=== PATIENT | female | born 1995 | race American Indian/Alaskan Native ===

== ENCOUNTER 2019-07-14 18:07 | Inpatient (IN) | payer BC ==
[2019-07-14 18:48] LABS: Basophils % (Auto) 0.4 % (0.0-1.8); Eosinophils # (Auto) 0.1 K/mm3 (0.0-0.4); Eosinophils % (Auto) 1.1 % (0.0-4.3); Hematocrit 32.7 % (30.3-42.9); Hemoglobin 11.1 gm/dl (10.1-14.3); Lymphocytes % (Auto) 25.6 % (13.4-35.0); Mean Corpuscular HGB Conc 34 % (30-34); Mean Corpuscular Volume 87 fl (79-97); Monocytes # (Auto) 0.7 K/mm3 (0.0-0.8); Monocytes % (Auto) 8.7 % (0.0-7.3); Platelet Count 221 K/mm3 (140-440); Red Blood Count 3.76 M/mm3 (3.65-5.03); Red Cell Distribution Width 17.1 % (13.2-15.2)
[2019-07-14 19:02] LABS: BUN/Creatinine Ratio 10; Blood Urea Nitrogen 5 mg/dL (7-17); Calcium 9.9 mg/dL (8.4-10.2); Hemolysis Index 1
[2019-07-14 21:23] LABS: Bilirubin,Urine NEG (Negative); Blood,Urine LG (Negative); Color,Urine Yellow (Yellow); Mucus,Urine 1+ /HPF; Urobilinogen,Urine < 2.0 mg/dL (<2.0)
[2019-07-14 21:27] LABS: RBC,Urine > 182.0 /HPF (0.0-6.0)
--- NOTE | 2019-07-14 21:48 | Ultrasound Report ---
ULTRASOUND OBSTETRIC, 07/14/2019 Indication: Vaginal bleeding in early . Rupture of membranes. COMPARISON: No prior studies are available for comparison. Findings: There is a single intrauterine . BPD = 3.2 cm = 16 weeks, 0 day(s). Head circumference = 12.7 cm = 16 weeks, 3 day(s). Abdominal circumference = 10.3 cm = 16 weeks, 2 day(s). Femur length = 2.1 cm = 16 weeks, 1 day(s). Overall estimated sonographic age = 16 weeks, 2 day(s). heart rate during the study ranged from 113 bpm to 174 bpm position is breech. Placenta is anterior and grade 0 . Amniotic fluid volume decreased. MIREYA equals less than 1 cm. Impression: 1. Single living intrauterine with estimated sonographic age of 16 weeks, 2 day(s). 2. Decreased amniotic fluid volume measuring less than 1 cm. Signer Name: Sandra Cates MD Signed: 07/14/2019 9:44 PM Workstation Name: [id number]
[2019-07-14] MEDS ORDERED: NACL 0.9% 1000 ML 1,000 ML IV ONE ×2 (22:07→23:50)
--- NOTE | 2019-07-14 23:24 | Emergency Department Report ---
ED Female HPI - General Chief complaint: Vaginal Bleeding Stated complaint: POSS MISCARRIAGE/HEADACHE Source: patient Mode of arrival: Ambulatory Limitations: No Limitations - History of Present Illness Initial comments: Patient is a A0 and runny less than items female who is approximately 15 weeks gestation and presents to the ED with complaint of acute onset consistent suprapubic pain and vaginal bleeding for the last 6 hours. Patient also complains of severe headache. Patient states that she noticed a mucus-like blood in the vagina and thereafter started having vaginal bleeding. Patient denies dizziness, fever, chills, nausea, vomiting, diarrhea, chest pain, shortness of breath, dysuria, urinary frequency and urgency and cough. MD Complaint: vaginal bleeding, pelvic pain, other (headache) -: Sudden, hour(s) (6) Location: suprapubic, other (vaginal) Radiation: non-radiating Severity: moderate Severity scale (0 -10): 6 Quality: cramping, sharp Consistency: intermittent Improves with: none Worsens with: none Are you Now?: Yes (15 weeks gestation) Associated Symptoms: denies other symptoms, vaginal bleeding, abdominal pain, headaches. denies: vaginal discharge, nausea/vomiting, fever/chills, loss of appetite, dysuria, hematuria, rash, seizure, shortness of breath, syncope, weakness, other - Related Data Sexually active: Yes : 1 Para: 0 A: 0 Allergies Allergy/AdvReac Type Severity Reaction Status Date / Time No Known Allergies Allergy Verified 07/14/19 18:10 ED Review of Systems ROS: Stated complaint: POSS MISCARRIAGE/HEADACHE Other details as noted in HPI Constitutional: denies: chills, fever Eyes: denies: eye pain, eye discharge, vision change ENT: denies: ear pain, throat pain Respiratory: denies: cough, shortness of breath, wheezing Cardiovascular: denies: chest pain, palpitations Endocrine: no symptoms reported Gastrointestinal: abdominal pain (suprapubic). denies: nausea, diarrhea Genitourinary: other (Vaginal bleeding). denies: urgency, dysuria, discharge Musculoskeletal: denies: back pain, joint swelling, arthralgia Skin: denies: rash, lesions Neurological: denies: headache, weakness, paresthesias Psychiatric: denies: anxiety, depression Hematological/Lymphatic: denies: easy bleeding, easy bruising ED Past Medical Hx - Past Medical History Previous Medical History?: No - Surgical History Past Surgical History?: No - Social History Smoking Status: Never Smoker Substance Use Type: None ED Physical Exam - General Limitations: No Limitations General appearance: alert, in no apparent distress - Head Head exam: Present: atraumatic, normocephalic, normal inspection - Eye Eye exam: Present: normal appearance, PERRL, EOMI Pupils: Present: normal accommodation - ENT ENT exam: Present: normal exam, normal orophraynx, mucous membranes moist, TM's normal bilaterally, normal external ear exam - Neck Neck exam: Present: normal inspection - Respiratory Respiratory exam: Present: normal lung sounds bilaterally. Absent: respiratory distress, wheezes, rales, rhonchi, chest wall tenderness, accessory muscle use, decreased breath sounds - Cardiovascular Cardiovascular Exam: Present: regular rate, normal rhythm, normal heart sounds. Absent: systolic murmur, diastolic murmur, rubs, gallop - GI/Abdominal GI/Abdominal exam: Present: soft, tenderness (mildly tender suprapubic area), normal bowel sounds. Absent: guarding, rebound, rigid, hyperactive bowel sounds, hypoactive bowel sounds, organomegaly, mass - Rectal Rectal exam: Present: deferred - External exam: Present: normal external exam Speculum exam: Present: vaginal bleeding (with blood clots in the vaginal vault), other (Cervical os partially closed with blood clots, and active bleeding.) Bi-manual exam: Present: other (Deferred bimanual exam) - Extremities Exam Extremities exam: Present: normal inspection, full ROM, normal capillary refill - Back Exam Back exam: Present: normal inspection, full ROM. Absent: tenderness, CVA tenderness (R), CVA tenderness (L), muscle spasm, paraspinal tenderness - Neurological Exam Neurological exam: Present: alert, oriented X3, CN II-XII intact, normal gait, reflexes normal - Psychiatric Psychiatric exam: Present: normal affect, normal mood - Skin Skin exam: Present: warm, dry, intact, normal color. Absent: rash ED Course Vital Signs 07/14/19 22:23 Temperature 98.7 F Pulse Rate 92 H Respiratory 16 Rate Blood Pressure 93/52 [Right] O2 Sat by Pulse 100 Oximetry - Reevaluation(s) Reevaluation #1: 07/15/19 01:21 This is a 23-year-old A0 female who is approximately 16 weeks gestation presented to ED with vaginal bleeding. Lab test results were reviewed and is unremarkable except for urinalysis that showed mild urinary tract infection. Exam showed active bleeding with blood clots in the vaginal vault and cervical os partially closed with blood clots. Patient was treated in the ED normal saline 2 L IV bolus and Rocephin 1 g IV 1. The ultrasound showed a single living intrauterine with estimated sonographic age of 16 weeks, 2 day(s) with FHR ranging between 113 bpm to 174 bpm and a decreased amniotic fluid volume measuring less than 1 cm. These findings were discussed with the ED attending physician Dr. Thania Gorman who advised that the [facility] Operator Physician concert or lecture hall manager be paged for further direction. Reevaluation #2: 07/15/19 01:27 I paged and discussed the patient's findings with the ObyGyn Physician concert or lecture hall manager Dr. Ayde Gr who admitted the patient to the [facility] Floor for evaluation. Dr. Gr to call in admission orders to the [facility] Floor. ED Medical Decision Making - Lab Data Result diagrams: 07/14/19 18:35 07/14/19 18:35 - Radiology Data Radiology results: report reviewed, image reviewed Findings [facility] [address] [place] [address] Ultrasound Report Signed Patient: BESSIE TORIBIO MR#: [id number] : 1995 Acct:[id number] Age/Sex: 23 / F ADM Date: 07/14/19 Loc: ED Attending Dr: Ordering Physician: KIRAN RUBIO Date of Service: 07/14/19 Procedure(s): US OB >= 14 weeks Fetus Accession Number(s): [id number] cc: KIRAN RUBIO ULTRASOUND OBSTETRIC, 07/14/2019 Indication: Vaginal bleeding in early . Rupture of membranes. COMPARISON: No prior studies are available for comparison. Findings: There is a single intrauterine . BPD = 3.2 cm = 16 weeks, 0 day(s). Head circumference = 12.7 cm = 16 weeks, 3 day(s). Abdominal circumference = 10.3 cm = 16 weeks, 2 day(s). Femur length = 2.1 cm = 16 weeks, 1 day(s). Overall estimated sonographic age = 16 weeks, 2 day(s). heart rate during the study ranged from 113 bpm to 174 bpm position is breech. Placenta is anterior and grade 0 . Amniotic fluid volume decreased. MIREYA equals less than 1 cm. Impression: 1. Single living intrauterine with estimated sonographic age of 16 weeks, 2 day(s). 2. Decreased amniotic fluid volume measuring less than 1 cm. Signer Name: Sandra Cates MD Signed: 07/14/2019 9:44 PM Workstation Name: [id number] Transcribed By: EB Dictated By: Sandra Cates MD Electronically Authenticated By: Sandra Cates MD Signed Date/Time: 07/14/19 491 - Medical Decision Making This is a 23-year-old A0 female who is approximately 16 weeks gestation presented to ED with vaginal bleeding. Lab test results were reviewed and is unremarkable except for urinalysis that showed mild urinary tract infection. Exam showed active bleeding with blood clots in the vaginal vault and cervical os partially closed with blood clots. Patient was treated in the ED normal s dean 2 L IV bolus and Rocephin 1 g IV 1. The ultrasound showed a single living intrauterine with estimated sonographic age of 16 weeks, 2 day(s) with FHR ranging between 113 bpm to 174 bpm and a decreased amniotic fluid volume measuring less than 1 cm. These findings were discussed with the ED attending physician Dr. Thania Gorman who advised that the Yvonne/Calender Operator Physician concert or lecture hall manager be paged for further direction. I paged and discussed the patient's findings with the ObyGyn Physician concert or lecture hall manager Dr. Ayde Gr who admitted the patient to the [facility] Floor for evaluation. Dr. Gr to call in admission orders to the [facility] Floor. - Differential Diagnosis Threatened miscarriage; Pelvic pain; Vaginal bleeding Critical care attestation.: If time is entered above; I have spent that time in minutes in the direct care of this critically ill patient, excluding procedure time. ED Disposition Clinical Impression: Threatened miscarriage, Abdominal pain during intrauterine , Vaginal bleeding before 22 weeks gestation Disposition: OP ADMIT IP TO THIS HOSP Is pt being admited?: Yes Does the pt Need Aspirin: No Condition: Stable Referrals: SKYLAR GUTIERREZ MD [Primary Care Provider] - 3-5 Days Time of Disposition: 01:30 Print Language: KOREAN
[2019-07-14] MEDS ORDERED: ROCEPHIN/NS 1 GM/50 ML 1 GM/50 ML BAG IV ONE (23:50)
[2019-07-15] MEDS: STADOL IV PRN ×3 (05:39→22:55)
[2019-07-15] MEDS: LACTATED RINGERS 1,000 ML IV SCH ×2 (05:39→20:02)
--- NOTE | 2019-07-15 08:44 | History and Physical Report ---
History of Present Illness Date of examination: 07/15/19 Date of admission: 07/15/19 01:31 Chief complaint: bleeding and cramping with 16 week iup. Medications and Allergies Allergies Allergy/AdvReac Type Severity Reaction Status Date / Time No Known Allergies Allergy Verified 07/14/19 18:10 Home Medications Medication Instructions Recorded Confirmed Last Taken Type No Known Home Medications [No 07/15/19 07/15/19 Unknown History Reported Home Medications] Active Meds: Active Medications Butorphanol Tartrate (Stadol) 1 mg IV Q2H PRN PRN Reason: Labor Pain Last Admin: 07/15/19 05:39 Dose: 1 mg Documented by: Lactated Ringer's (Lactated Ringers) 1,000 mls @ 125 mls/hr IV DIRECT SUZANNE Last Admin: 07/15/19 05:39 Dose: 125 mls/hr Documented by: - Vital Signs Vital signs: Vital Signs Temp Pulse Resp BP Pulse Ox 98.7 F 92 H 16 93/52 100 07/14/19 22:23 07/14/19 22:23 07/14/19 22:23 07/14/19 22:23 07/14/19 22:23 Temp Pulse Resp BP Pulse Ox 97.7 F 69 20 95/55 100 07/15/19 08:30 07/15/19 08:30 07/15/19 08:30 07/15/19 08:30 07/15/19 08:30 Results Result Diagrams: 07/14/19 18:35 07/14/19 18:35 Abnormal lab results 07/14/19 07/14/19 07/14/19 Range/Units 18:35 18:35 20:42 RDW 17.1 H (13.2-15.2) % Taylor % (Auto) 8.7 H (0.0-7.3) % BUN 5 L (7-17) mg/dL Creatinine 0.5 L (0.7-1.2) mg/dL Lipase 11 L (13-60) units/L HCG, Quant (0-4) mIU/mL Urine WBC (Auto) (0.0-6.0) /HPF 07/14/19 07/15/19 Range/Units Unknown 01:50 RDW (13.2-15.2) % Taylor % (Auto) (0.0-7.3) % BUN (7-17) mg/dL Creatinine (0.7-1.2) mg/dL Lipase (13-60) units/L HCG, Quant 7130 H (0-4) mIU/mL Urine WBC (Auto) 9.0 H (0.0-6.0) /HPF All other labs normal.
[2019-07-16] MEDS: STADOL IV PRN (00:45)
[2019-07-16] MEDS: LACTATED RINGERS 1,000 ML IV SCH ×3 (02:17→23:29)
[2019-07-16] MEDS ORDERED: ZOFRAN IM ONE (05:13)
[2019-07-16] MEDS ORDERED: ZOFRAN IV ONE (05:19)
[2019-07-16] MEDS ORDERED: IBUPROFEN PO PRN (06:59)
[2019-07-16] MEDS ORDERED: PITOCin/NS 20 UNIT/1000ML DRIP 20 UNITS/1,000 ML BAG IV SCH (07:00)
[2019-07-16] MEDS ORDERED: PITOCin/NS 20 UNIT/1000ML DRIP 20,000 MILLIUNITS/1,000 ML BAG IV ONE (07:13)
--- NOTE | 2019-07-16 16:07 | Progress Note ---
Assessment and Plan with pprom at 16 weeks now post delivery of fetus but awaiting delivery of placenta. Will order cytotec per rectum to help expedite process. Subjective - Subjective Date of service: 07/16/19 Principal diagnosis: pprom at 16 weeks Interval history: Pt began cramping overnight and delivered fetus in bed. Small cord was clamped and cut by nursing staff. Now awaiting delivery of placenta Patient reports: vaginal bleeding (scant) Objective - Vital Signs Vital Signs: Vital Signs - 12hr 07/16/19 07/16/19 07/16/19 04:31 08:53 11:51 Temperature 98.7 F 98.0 F 98.8 F Pulse Rate 78 72 71 Respiratory 20 16 20 Rate Blood Pressure 108/67 99/55 100/54 O2 Sat by Pulse 98 98 98 Oximetry - Exam Breasts: deferred Cardiovascular: Regular rate, Normal S1, Normal S2 Lungs: Clear to auscultation, Normal air movement Abdomen: Present: normal appearance, soft. Absent: distention, tenderness Vulva: both: normal Uterus: Present: normal Cervical Dilatation: 4 Cervical Effacement Percentage: 80 - Labs Labs: Abnormal Labs 07/14/19 07/14/19 07/14/19 18:35 18:35 20:[address] % (Auto) 8.7 H BUN 5 L Creatinine 0.5 L Lipase 11 L HCG, Quant Urine WBC (Auto) 07/14/19 07/15/19 Unknown 01:[address] % (Auto) BUN Creatinine Lipase HCG, Quant 7130 H Urine WBC (Auto) 9.0 H
[2019-07-16] MEDS: TYLENOL PO PRN ×2 (16:30→23:19)
[2019-07-16] MEDS: CYTOTEC PR SCH ×2 (17:19→23:21)
[2019-07-17] MEDS ORDERED: REGLAN ONE (00:36)
[2019-07-17] MEDS ORDERED: PEPCID IV ONE ×2 (00:36→00:41)
[2019-07-17] MEDS ORDERED: BICITRA ONE (00:36)
[2019-07-17] MEDS ORDERED: PITOCin/NS 20 UNIT/1000ML DRIP 20,000 MILLIUNITS/1,000 ML BAG IV ONE (00:37)
[2019-07-17] MEDS ORDERED: LACTATED RINGERS 0 ML ONE (00:38)
[2019-07-17] MEDS ORDERED: BICITRA PO ONE (00:39)
[2019-07-17] MEDS ORDERED: REGLAN IV ONE (00:40)
[2019-07-17 00:50] LABS: Basophils % (Auto) 0.4 % (0.0-1.8); Eosinophils # (Auto) 0.1 K/mm3 (0.0-0.4); Eosinophils % (Auto) 1.4 % (0.0-4.3); Hematocrit 24.3 % (30.3-42.9); Hemoglobin 8.2 gm/dl (10.1-14.3); Lymphocytes # (Auto) 2.4 K/mm3 (1.2-5.4); Mean Corpuscular HGB Conc 34 % (30-34); Mean Corpuscular Volume 89 fl (79-97); Monocytes # (Auto) 0.7 K/mm3 (0.0-0.8); Monocytes % (Auto) 9.2 % (0.0-7.3); Platelet Count 168 K/mm3 (140-440); Red Blood Count 2.74 M/mm3 (3.65-5.03); Red Cell Distribution Width 16.4 % (13.2-15.2)
[2019-07-17 01:00] LABS: INR 1.2 (0.87-1.13)
[2019-07-17 01:01] LABS: Partial Thromboplastin Time 29.1 Sec. (24.2-36.6)
[2019-07-17] MEDS ORDERED: ANCEF/STERILE WATER 2 GM/20 ML 0 GM/0 ML SYRINGE IV ONE (01:01)
--- NOTE | 2019-07-17 01:27 | Event Note ---
Date: 07/17/19 Pt began bleeding approximately one hour post 2nd cytotec. Because of the amount of bleeding the decision was made to proceed with urgent D&C, however, prior to or, placenta delivered spontaneously. Fundus was firm with minimal bleeding.
--- NOTE | 2019-07-17 01:33 | Discharge Summary ---
Providers - Providers Date of Admission: 07/15/19 01:31 Date of discharge: 07/17/19 Attending physician: LETI PLATA Primary care physician: [facility] Hospitalization Reason for admission: labor, IUFD Discharge diagnosis: delivery Hospital course: unremarkable Condition at discharge: Good Disposition: DC-01 TO HOME OR SELFCARE Plan - Discharge Medications Prescriptions: Ibuprofen [Motrin] 800 mg PO Q8HR PRN #40 tablet PRN Reason: Pain, Moderate (4-6) DOXYCYCLINE Hyclate [Vibramycin CAP] 100 mg PO BID #20 capsule - Provider Discharge Summary Activity: routine, no sex for 6 weeks, no heavy lifting 4 weeks, no strenuous exercise Diet: routine Instructions: routine Additional instructions: [] Smoking cessation referral if applicable(refer to patient education folder for contact #) [] Refer to [facility]'s [facility] Booklet Call your doctor immediately for: * Fever > 100.5 * Heavy vaginal bleeding ( >1 pad per hour) * Severe persistent headache * Shortness of breath * Reddened, hot, painful area to leg or breast * Drainage or odor from incision. * Keep incision clean and dry at all times and follow doctor's instructions regarding bathing/showering - Follow up plan Follow up: SKYLAR GUTIERREZ MD [Primary Care Provider] - 14 Days
[2019-07-17 03:10] LABS: Hematocrit 20.4 % (30.3-42.9); Hemoglobin 6.8 gm/dl (10.1-14.3)
[2019-07-17] MEDS: LACTATED RINGERS 1,000 ML IV SCH (06:22)
[2019-07-17 12:56] VITALS: BP 97/49
== END 2019-07-17 16:30 | disposition home or self-care (01) | DRG 833 ==
LOC: ED 18:07 → OB 07-15 01:31
PROVIDERS: ADMIT Obstetrics & Gynecology; ATTEND Obstetrics & Gynecology
PROC: 10E0XZZ Delivery of Products of Conception, External Approach (ICD-10-PCS; principal; 2019-07-17)
PROC: 3E0P7VZ Introduction of Hormone into Female Reproductive, Via Natural or Artificial Opening (ICD-10-PCS; 2019-07-17)
DX: O20.0 Threatened abortion (principal); Z3A.16 16 weeks gestation of pregnancy
CPT/HCPCS: 36415; 76805; 80048; 81001; 83690; 84702; 85014; 85018; 85025; 85379; 85384; 85610; 85730; 86900; 86901; 87086; 88305; 96361; 96365; G0378; J0595; J0690; J0696; J2405; J2590; J2765; J7030; J7120

== ENCOUNTER 2019-08-14 06:30 | Emergency (ER) | payer BC ==
[2019-08-14 06:39] VITALS: BP 128/82
--- NOTE | 2019-08-14 08:07 | Emergency Department Report ---
ED Abdominal Pain HPI - General Chief Complaint: Abdominal Pain Stated Complaint: HIP PAIN Time Seen by Provider: 08/14/19 07:56 Source: patient Mode of arrival: Ambulatory Limitations: No Limitations - History of Present Illness Initial Comments: This 24-year-old female presents to ED complaining of left-sided flank pain for the past 3 days. Patient states that pain is intermittent and comes and goes throughout the day. She was to pale about a 4 out of 10 intensity. She admits intermittent nausea but denies vomiting or dysuria, fever, vaginal discharge or vaginal bleeding. MD Complaint: flank pain Severity scale (0 -10): 5 - Related Data Previous Rx's Medication Instructions Recorded Last Taken Type DOXYCYCLINE Hyclate [Vibramycin 100 mg PO BID #20 capsule 07/17/19 Unknown Rx CAP] Ibuprofen [Motrin] 800 mg PO Q8HR PRN #40 tablet 07/17/19 Unknown Rx Ketorolac [Toradol] 10 mg PO Q6H PRN #30 tablet 08/14/19 Unknown Rx Ondansetron [Zofran ODT TAB] 8 mg PO Q12HR #30 tab.rapdis 08/14/19 Unknown Rx Allergies Allergy/AdvReac Type Severity Reaction Status Date / Time No Known Allergies Allergy Verified 07/14/19 18:10 ED Review of Systems ROS: Stated complaint: HIP PAIN Other details as noted in HPI Comment: All other systems reviewed and negative ED Past Medical Hx - Past Medical History Previous Medical History?: Yes Additional medical history: miscarriage in jul 2019 - Surgical History Past Surgical History?: No - Social History Smoking Status: Never Smoker Substance Use Type: None - Medications Home Medications: Home Medications Medication Instructions Recorded Confirmed Last Taken Type DOXYCYCLINE Hyclate [Vibramycin 100 mg PO BID #20 capsule 07/17/19 Unknown Rx CAP] Ibuprofen [Motrin] 800 mg PO Q8HR PRN #40 tablet 07/17/19 Unknown Rx Ketorolac [Toradol] 10 mg PO Q6H PRN #30 tablet 08/14/19 Unknown Rx Ondansetron [Zofran ODT TAB] 8 mg PO Q12HR #30 tab.rapdis 08/14/19 Unknown Rx ED Physical Exam - General Limitations: No Limitations General appearance: alert, in no apparent distress - Head Head exam: Present: atraumatic, normocephalic - Eye Eye exam: Present: normal appearance - ENT ENT exam: Present: mucous membranes moist - Neck Neck exam: Present: normal inspection - Respiratory Respiratory exam: Present: normal lung sounds bilaterally. Absent: respiratory distress - Cardiovascular Cardiovascular Exam: Present: regular rate, normal rhythm. Absent: systolic murmur, diastolic murmur, rubs, gallop - GI/Abdominal GI/Abdominal exam: Present: soft, normal bowel sounds. Absent: distended, tenderness, guarding - Extremities Exam Extremities exam: Present: normal inspection, full ROM - Back Exam Back exam: Present: normal inspection, full ROM. Absent: tenderness, CVA tenderness (R), CVA tenderness (L) - Neurological Exam Neurological exam: Present: alert, oriented X3 - Psychiatric Psychiatric exam: Present: normal affect, normal mood - Skin Skin exam: Present: warm, dry, intact, normal color. Absent: rash ED Course Vital Signs 08/14/19 06:37 Temperature 97.9 F Pulse Rate 75 Respiratory 18 Rate Blood Pressure 128/82 [Right] O2 Sat by Pulse 99 Oximetry ED Medical Decision Making - Lab Data Laboratory Last Values Urine Color Yellow (Yellow) 08/14/19 08:08 Urine Turbidity Clear (Clear) 08/14/19 08:08 Urine pH 6.0 (5.0-7.0) 08/14/19 08:08 Ur Specific Wharton 1.016 (1.003-1.030) 08/14/19 08:08 Urine Protein <15 mg/dl mg/dL (Negative) 08/14/19 08:08 Urine Glucose (UA) Neg mg/dL (Negative) 08/14/19 08:08 Urine Ketones Neg mg/dL (Negative) 08/14/19 08:08 Urine Blood Sm (Negative) 08/14/19 08:08 Urine Nitrite Neg (Negative) 08/14/19 08:08 Urine Bilirubin Neg (Negative) 08/14/19 08:08 Urine Urobilinogen < 2.0 mg/dL (<2.0) 08/14/19 08:08 Ur Leukocyte Esterase Tr (Negative) 08/14/19 08:08 Urine WBC (Auto) < 1.0 /HPF (0.0-6.0) 08/14/19 08:08 Urine RBC (Auto) 1.0 /HPF (0.0-6.0) 08/14/19 08:08 U Epithel Cells (Auto) 4.0 /HPF (0-13.0) 08/14/19 08:08 Hyaline Casts 1 /LPF 08/14/19 08:08 Urine Mucus Few /HPF 08/14/19 08:08 Urine HCG, Qual Negative (Negative) 08/14/19 08:08 - Medical Decision Making 24-year-old female presents with left flank pain mostly secondary to kidney stone. Urinalysis positive for crystal oxalate which is suggestive of a kidney stone. At this time patient is in no acute distress. Abdomen is nontender. Discussed with patient stones usually will pass and to follow up with her primary care physician. Instructions given. Discussed with the patient if symptoms worsen or new symptoms arise to return to ED immediately Otherwise all vital signs are normal patient is in no distress she is sitting comfortably in the ED. Throughout her ED stay. Patient declined to have pain medication because she was not in pain or in the ED stay. Critical care attestation.: If time is entered above; I have spent that time in minutes in the direct care of this critically ill patient, excluding procedure time. ED Disposition Clinical Impression: Acute flank pain, Kidney calculi Disposition: - TO HOME OR SELFCARE Is pt being admited?: No Does the pt Need Aspirin: No Condition: Stable Instructions: Abdominal Pain (ED), How to Strain Your Urine (ED), Kidney Stones (ED) Additional Instructions: Make sure to follow up with the primary care physician as discussed. Take all your medications as you've been prescribed. If you have any worsening symptoms or develop new symptoms please return to ED immediately. Prescriptions: Ketorolac [Toradol] 10 mg PO Q6H PRN #30 tablet PRN Reason: Pain Ondansetron [Zofran ODT TAB] 8 mg PO Q12HR #30 tab.rapdis Referrals: PRIMARY CARE, [Referring] - 3-5 Days [facility] [Provider Group] - 3-5 Days [facility] [Outside] - 3-5 Days Forms: Accompanied Note, Work/School Release Form(ED) Time of Disposition: 09:31
[2019-08-14 08:57] LABS: Bilirubin,Urine NEG (Negative); Blood,Urine SM (Negative); Color,Urine Yellow (Yellow); Hyaline Casts,Urine 1 /LPF; Mucus,Urine FEW /HPF; Protein,Urine <15 mg/dL mg/dL (Negative); Urobilinogen,Urine < 2.0 mg/dL (<2.0); WBC,Urine < 1.0 /HPF (0.0-6.0)
[2019-08-14 09:18] LABS: HCG Qualitative,Urine Negative (Negative)
== END 2019-08-14 09:43 | disposition home or self-care (01) ==
LOC: ED 06:30
DX: N20.0 Calculus of kidney (principal); Z79.899 Other long term (current) drug therapy
CPT/HCPCS: 81001; 81025